=== PATIENT | female | born 1965 | race Caucasian/White ===

== ENCOUNTER 2018-11-23 15:49 | Outpatient (REF) | payer BC, SELFPAY ==
--- NOTE | 2018-11-23 15:30 | PAPFT_PTH ---
PATIENT: Eliz Vaughan LOC: [facility]I U#:[id number] AGE/SX: 53/F ROOM: RE11/23/[address]: CHING Chicas : 1965 BED: DIS: 11/23/2018 SPEC #: [id number] RECD: 11/23/18 18:11 STATUS: TIA RERyan #: [id number] JONNY: 11/23/18 15:[address]: Sofia Salvador [facility] Cytology RECD BY: Janice Childress ENTERED: 11/23/18 18:12 SP TYPE: PAPFT OTHR DR: Trevor Gold MD Tissues: 1 - CX/ENDOCX FOR PAP SMEARS Procedures: PAP THIN PREP/UVM Screening HPV DNA PROBE Comments: [id number]
== END 2018-11-23 16:09 ==
LOC: LBN 15:49
PROVIDERS: PCP Family Medicine; Visit Provider Nurse Practitioner Family
DX: Z12.4 Encounter for screening for malignant neoplasm of cervix (principal); Z11.51 Encounter for screening for human papillomavirus (HPV)
CPT/HCPCS: 88142; 87624

== ENCOUNTER 2019-01-08 00:54 | Outpatient (CLI) | payer BC, SELFPAY ==
--- NOTE | 2019-01-08 15:00 | DI.MAMMO_ITS ---
SYMPTOM/DIAGNOSIS: SCREENING, Z12.31, FAMILY H/O BREAST CA MAMMOGRAMS: Mammograms were interpreted according to the usual protocol including computer analysis with CAD system, tomosynthesis and C view imaging. The breasts are heterogeneously dense. No dominant mass or clumped microcalcification is identified in either breast. Current examination is compared with previous examinations including 12/2017 and there has been no gross interval change in appearance in comparison with the previous studies. CONCLUSION: No specific evidence of malignancy at this time. Routine screening examinations are suggested at yearly intervals due to the family history of breast carcinoma. Category 1. Breast density, category C. MQSA ASSESSMENT OF FINDINGS: Negative. Category 1. Patient will receive a letter notifying them of these results. Bi-RADS category C. The breasts are heterogeneously dense, which may obscure small masses.
== END 2019-01-08 01:14 ==
PROVIDERS: PCP Family Medicine; Visit Provider Nurse Practitioner Family
DX: Z12.31 Encounter for screening mammogram for malignant neoplasm of breast (principal); Z80.3 Family history of malignant neoplasm of breast
CPT/HCPCS: 77063; 77067

== ENCOUNTER 2020-02-24 00:39 | Outpatient (CLI) | payer BC, SELFPAY ==
--- NOTE | 2020-02-24 06:15 | DI.MAMMO_ITS ---
EXAM: MG MAMMO SCREENING CLINICAL HISTORY: screening,Z12.39 TECHNIQUE: Mammograms were interpreted according to the usual protocol including computer analysis w [employer] CAD system, tomosynthesis and C-view imaging. COMPARISON: FINDINGS: Breasts are heterogeneously dense. There are nonspecific scattered microcalcifications of both breas ts. No suspicious clumped microcalcification is seen. Examination is compared with prior studies in clDecember 2018 and there has been no gross interval change appearance comparison previous films. IMPRESSION: No specific evidence of malignancy at this time. Routine screening examinations are suggested at yea rly intervals due to the family history of breast carcinoma. Category: BI-RADS Cat 1 - Negative Breast Density - Category C - Heterogeneously dense:
== END 2020-02-24 00:59 ==
PROVIDERS: PCP Family Medicine; Visit Provider Nurse Practitioner Family
DX: Z12.31 Encounter for screening mammogram for malignant neoplasm of breast (principal); Z80.3 Family history of malignant neoplasm of breast
CPT/HCPCS: 77063; 77067

== ENCOUNTER 2021-01-04 16:16 | Outpatient (REF) | payer BC, SELFPAY ==
--- NOTE | 2021-01-04 15:30 | PAPFT_PTH ---
PATIENT: Eliz Vaughan LOC: N U#:[id number] AGE/SX: 56/F ROOM: RE01/04/[address]: CHING Chicas : 1965 BED: DIS: 01/04/2021 SPEC #: [id number] RECD: 01/04/21 17:39 STATUS: TIA REQ #: [id number] JONNY: 01/04/21 15:[address]: Sofia Salvador DEPT: [facility] Cytology RECD BY: Janice Childress ENTERED: 01/04/21 17:39 SP TYPE: PAPFT OTHR DR: Trevor Gold MD Tissues: 1 - CX/ENDOCX FOR PAP SMEARS Procedures: PAP THIN PREP/UVM Screening HPV DNA PROBE Comments: [id number]
== END 2021-01-04 16:17 | disposition home or self-care (01) ==
LOC: LBN 16:16
PROVIDERS: PCP Family Medicine; Visit Provider Nurse Practitioner Family
DX: Z12.4 Encounter for screening for malignant neoplasm of cervix (principal); Z11.51 Encounter for screening for human papillomavirus (HPV)
CPT/HCPCS: 88142; 87624

== ENCOUNTER 2021-03-02 03:15 | Outpatient (CLI) | payer BC, SELFPAY ==
[2021-03-02 09:32] LABS: Anion Gap 7.6 mmol/L (3-11); BUN 18 mg/dL (7-18); CO2 28.4 mmol/L (21.0-32.0); CREATININE 0.8 mg/dL (0.55-1.02); Calcium 9.2 mg/dL (8.5-10.1); Calculated LDL 125 mg/dL (<100); Chloride 106 mmol/L (98-107); Cholesterol 202 mg/dL (<200); Glucose 93 mg/dL (74-106); HDL Cholesterol 69 mg/dL (40-60); Potassium 4.5 mmol/L (3.5-5.1); Sodium 142 mmol/L (136-145); Triglyceride 44 mg/dL (<150)
[2021-03-05 14:12] LABS: Dog Dander IgE <0.35 kU/L
== END 2021-03-02 03:16 | disposition home or self-care (01) ==
LOC: LBO 03:15
PROVIDERS: Dermatology; PCP Family Medicine; Visit Provider Family Medicine
DX: E87.1 Hypo-osmolality and hyponatremia (principal); E78.5 Hyperlipidemia, unspecified; H01.133 Eczematous dermatitis of right eye, unspecified eyelid; H01.136 Eczematous dermatitis of left eye, unspecified eyelid
CPT/HCPCS: 36415; 80048; 80061; 86003

== ENCOUNTER 2021-03-13 01:26 | Outpatient (CLI) | payer BC, SELFPAY ==
--- NOTE | 2021-03-13 09:15 | DI.MAMMO_ITS ---
Exam(s) MAMMO SCREENING EXAM: MAMMO SCREENING CLINICAL HISTORY: screening,Z12.39 TECHNIQUE: Bilateral full field digital CC and MLO mammographic images were obtained with 3D tomosyn thesis and utilizing computer aided detection (CAD). COMPARISON: Available for comparison. FINDINGS: Masses/Architectural Distortion: None seen. Microcalcifications: No suspicious pleomorphic-type are seen. Skin Thickening/Nipple Retraction: None. IMPRESSION: 1. No significant interval change with no specific features of malignancy noted. 2. Unless there is more urgent need, screening mammography is recommended, as per [employer] guidelines. BI-RADS Category 1 - Negative Breast Density - Category C - Heterogeneously dense Breast density category C or D implies that the patient has dense breast tissue. Dense breast tissue is very common and is not abnormal but dense breast tissue can make it harder to find cancer on a ma mmogram. Also, dense breast tissue may increase their breast cancer risk. This information about the result of the mammogram report was provided to the patient to raise their awareness. Use this report when you speak with the patient about their risks for breast cancer, which includes their family hist ory. At that time, you may recommend for more screening tests (Ultrasound or MRI) as they might be us eful based on their risk. A negative radiographic report should not delay biopsy if a dominant or clinically suspicious mass is present. Up to ten percent of cancers are not identified on mammography. A negative report may reinforce clinical impression. Adenosis and dense breasts may obscure an underlying neoplasm. False positive reports average 6 to 10%. Patient will receive a letter notifying them of these results.
== END 2021-03-13 01:46 ==
PROVIDERS: PCP Family Medicine; Visit Provider Nurse Practitioner Family
DX: Z12.31 Encounter for screening mammogram for malignant neoplasm of breast (principal)
CPT/HCPCS: 77063; 77067

== ENCOUNTER 2021-05-14 02:00 | Outpatient (CLI) | payer BC, SELFPAY ==
[2021-05-14 12:26] LABS: Source Nasal/Nares
[2021-05-14 15:07] LABS: COVID-19 PCR Negative (Negative)
== END 2021-05-14 02:01 | disposition home or self-care (01) ==
LOC: LBO 02:01
PROVIDERS: PCP Family Medicine; Visit Provider Surgery
DX: Z20.822 Contact with and (suspected) exposure to COVID-19 (principal); Z01.818 Encounter for other preprocedural examination
CPT/HCPCS: 87635

== ENCOUNTER 2021-05-15 06:31 | Day surgery (SDC) | payer BC, SELFPAY ==
--- NOTE | 2021-05-14 10:17 | W.PM.HP.N ---
Date of service: 05/15/21 Time of Service: 09:00 Assessment and Plan Assessment and plan (1) Pseudocholinesterase deficiency: Status: Acute (2) Varicose veins of bilateral lower extremities with pain: Status: Acute (3) Varicose veins of both lower extremities with complications: Status: Acute (4) Varicose veins of both legs with edema: Status: Acute Assessment and plan: excision of collateral veins- risks: Bleeding, infection, pneumonia, blood clots, scarring, hyperpigmentation, and recurrence. And complications with anesthesia. I reviewed with the patient today what she could expect during surgery recovery time and risks. We stressed the importance of elevation, compression, and ice. Patient will follow up in 2 weeks. She is stable for the procedure today. History of Present Illness Narrative: -No changes in meds or health status. all questions answered and stable for procedure. veins are marked. The veins being treated the right extremity include: -Anterior accessory of the great saphenous vein- anterior/medially upper thigh, RL extremity x1 w/ stab phlebectomy -Anterior accessory greater saphenous vein- posterior/medial superior portion of calf- RLE x1 w/ stab phlebectomy - x2 spider veins RLE (upper anterior thigh ) w/schlerotherapy x2 spider veins LLE- (anterior/medial lower thigh) w/ sclerotherapy (1) Varicose veins of bilateral lower extremities with pain: (2) Varicose veins of both lower extremities with complications: (3) Varicose veins of both legs with edema: -stabe phlebectomy of RLE and b/l sclerotherapy . -she is a good candidate for anthesia. She did not have problems she had no problems with anesthesia in the past. She has had previous GS these are small side branches that have reoccurred. We did discuss what she could expect during surgery, post procedurally and recovery time. Is approximately 2 weeks. Where compression stockings in the postoperative.. I would like for her to get thigh-high compression stockings possible. She needs to continue to wear compression stockings on a daily basis. She has extensive family history of poor veins. She is on her feet and does need to wear compression stockings stockings lifelong. She is at high risk for recurrence of varicose veins. Risks of surgery include but not limited to: Anesthesia, bleeding, infection, pneumonia, blood clots, chronic pain or chronic numbness and scarring. As well as recurrence of the veins. Risks of scleral include recurrence, ulceration, infections, and skin staining hemosiderin deposition. She has had previous GSV ablation. She does not need to have repeat ultrasound at this point. HPI Pt had b/l varicose vein exicision in 2001/b/l GSV VNUS in 2004& b/l GSV VNUS 2007 She c/o pain and burning in the veins. 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 She does use support hose. There is a strong family hx of V.V. Her mother had bleeding veins. She has never had ulcers. She occ have LE edema. None is present today. She does not get CP or SOB w/ walking around the block. She is a non smoker. She has not had problems w/ anethesia in the past. She say vascular again in 2010. She had venous comtency study done which did reveal: RIGHT C. Femoral V. Reflux.+ Femoral V. Competent: + Pop. V. Competent: + Post Tib V. Reflux: + Short saphenous V. competent: + LEFT C. Femoral V. Reflux:yes Femoral V. Competence:+ Pop. V. Competent:+ Post. Tib. Reflux:+ Short saphenous V. Competent:+ Plan: At this point, stab phlecetomy would be her be the option for her recurrent varicosities. With the caveat that are highly likely to reoccur. Also stab incision around the ankle may be painful in the recovery period. Varicose Veins Pt is here regarding painful varicous veins. medial thigh: right, knee: right, calf: right and ankle: right aching, burning and other 4 elevating extremities Reports firmness, bruising, fatigue, heaviness, pruritus, limb pain, edema and leg edema History of lower extremity trauma: No Superficial thrombophlebitis: Yes Family history of varicose veins: yes Patient has previously received the following treatment(s) for lower extremity varicose veins: Reports none Does patient have a history of : yes Does patient intend to have future pregnancies: no Has patient had lower extremity venous scan with relux testing: Yes Support hose use: Yes Problems walking or doing physical activity: No How does it affect you: daily Do you walk much: Yes Do you stand much: Yes Medication compliance: good Large amounts of Vitamin K: No PFSH Medical History Acne Depressive disorder (09/30/11) IUD surveillance (11/07/14) Carney neuroma Surgical History section Colonoscopy - MAC (01/12/18) History of vein stripping Family History Mother Depression Heart disease Father Essential hypertension Grandmother Breast cancer maternal Maternal Aunt Breast cancer maternal Maternal Aunt Breast cancer maternal Social History Smoking/Tobacco Use Status: Never Smoking risk assessment performed?: Yes Alcohol Intake: current Alcohol Intake frequency: a few times a month Drug use: Never Substance use type: does not use Do you feel safe at home: Yes Do you feel safe in your relationship?: Yes Female Reproductive History Menstrual control method: progestin IUCD History History 2 Para 1 Hx # Term Pregnancies Multiple births Hx # Pregnancies Ectopic pregnancies AB induced Hx Number of Living Children AB spontaneous Meds Allergies and Home Medications Allergies Allergy/AdvReac Type Severity Reaction Status Date / Time pseudocholinesterase AdvReac Severe Cardiac Uncoded 05/15/21 07:38 Dysrythmia Home Medications Medication Instructions Recorded Confirmed Type multivitamin [Daily Multi-Vitamin] 1 tab PO DAILY 03/23/13 05/15/21 History spironolactone 50 mg PO DAILY #180 tab-cap 03/23/13 05/15/21 History citalopram 20 mg tablet 20 mg PO DAILY #90 tab-cap 01/04/21 05/15/21 Rx cetirizine 10 mg tablet 10 mg PO DAILY PRN 03/28/21 History Exam Resp Effort & Inspection: normal respiratory effort Auscultation: clear to auscultation bilaterally Cardio Rate: regular rate Rhythm: regular rhythm GI Palpation: soft Auscultation: normal bowel sounds Extrem General: no clubbing, cyanosis or edema Other: varicosity's on right upper and lower medial thigs- marked in preop. Few scattered spiders b/l.
[2021-05-15 06:30] VITALS: BP 109/71; PULSE 68; RESP 6; TEMP 36.6; O2SAT 97
[2021-05-15] MEDS: Lactated Ringers 1,000 ML 80 ML IV (07:04)
--- NOTE | 2021-05-15 07:20 | W.ANESPRE ---
General Info Date of Service Date Performed: 05/15/21 Height: 5 ft 6 in Weight: 79.5 kg Body Mass Index (BMI): 28.3 Surgical Procedure: Operation Date: 05/15/21 07:55 Proposed Procedures Side Surgeon p vein stripping upper and lower leg rt and injections Right Cris Lindsay, Actual Procedures Side Surgeon p vein stripping upper and lower leg rt and injections Right Cris Lindsay, DO Meds Allergies and Home Medications Allergies Allergy/AdvReac Type Severity Reaction Status Date / Time pseudocholinesterase AdvReac Severe Cardiac Uncoded 05/15/21 07:38 Dysrythmia Home Medication Medication Instructions Recorded multivitamin [Daily Multi-Vitamin] 1 tab PO DAILY 03/23/13 spironolactone 50 mg PO DAILY #180 tab-cap 03/23/13 citalopram 20 mg tablet 20 mg PO DAILY #90 tab-cap 01/04/21 cetirizine 10 mg tablet 10 mg PO DAILY PRN 03/28/21 Current Visit Medications: Current Medications Generic Name Dose Route Start Last Admin Trade Name Deejayq PRN Reason Stop Dose Admin Ringer's Solution 1,000 mls @ 80 mls/hr 05/15/21 06:00 05/15/21 07:04 IV 06/13/21 23:59 80 mls/hr INFUSION ARTURO Administration IV Miscellaneous Supplies 1 each 05/15/21 06:00 Iv Access IV 06/13/21 23:59 DIRECTED ARTURO Sodium Chloride 0 ml 05/15/21 06:00 Normal Saline Flush 10 Ml Syr IV 06/13/21 23:59 PRN PRN Sodium Chloride 0 ml 05/15/21 06:00 Normal Saline 10 Ml Vial IJ 06/13/21 23:59 DIRECTED PRN Sterile Water 0 ml 05/15/21 06:00 Water,Injection,Sterile 10 Ml Vial IJ 06/13/21 23:59 DIRECTED PRN PFSH Active Problems Active Problems: Problem Status Onset Code Varicose veins of bilateral lower extremities with pain I83.813 Varicose veins of both lower extremities with complications I83.893 Varicose veins of both legs with edema I83.893 Acne L70.9 Depressive disorder 09/30/11 F32.9 IUD surveillance 11/07/14 Z30.431 Medical History Medical History (Updated 05/15/21 @ 06:43 by Marisabel Wells) Acne Depressive disorder (09/30/11) IUD surveillance (11/07/14) Carney neuroma Surgical History Surgical History (Updated 05/15/21 @ 06:42 by Marisabel Wells) section Colonoscopy - MAC (01/12/18) History of vein stripping Tobacco Smoking/Tobacco Use Status: Never Alcohol Alcohol Intake: current Alcohol intake frequency: a few times a month Substance Use Substance use: Never Substance use type: does not use Prental History History 2 Para 1 Hx # Term Pregnancies Multiple births Hx # Pregnancies Ectopic pregnancies AB induced Hx Number of Living Children AB spontaneous Vital Signs and Lab Results Vital Signs Most Recent Vital Signs in EMR: Most Recent Vital Signs Temp Pulse Resp BP Pulse Ox 36.6 C 68 6 L 109/71 97 05/15/21 06:30 05/15/21 06:30 05/15/21 06:30 05/15/21 06:30 05/15/21 06:30 Point of Care Results Point of Care Results: POC- Test(urine) Negative 05/15/21 07:03 Lab Results Blood Type / Crossmatch: No Data to Display Complete Blood Count: No Data to Display Complete Metabolic Panel: No Data to Display Liver Function Panel: No Data to Display Coagulation Panel: No Data to Display Cardiac Panel: No Data to Display Arterial Blood Gas: No Data to Display Venous Blood Gas: No Data to Display Pancreas Panel: No Data to Display Thyroid Panel: No Data to Display Infectious Disease: Coronavirus (COVID-19)(PCR) Negative (Negative) 05/14/21 08:27 05/14/21 Coronavirus 2019 Source Nasal/Nares 05/14/21 08:27 05/14/21 Blood Cultures: No Data to Display Toxicology Panel: No Data to Display Panel: No Data to Display Anesthesia Assessment and Plan Anesthesia History Personal History: Pseudocholinesterase Deficiency Family History: Pseudocholinesterase Deficiency (Possibly father) Exercise Tolerance Exercise Tolerance: Metabolic Equivalents>4 Pertinent Negatives Pertinent Negatives: No Symptoms of GERD, No Major Cardiovascular Symptoms or Complaints, No Major Pulmonary Symptoms or Complaints and No History of CVA/TIA Cardiac & Pulmonary Exam Cardiac Exam: Normal S1/S2 Heart Sounds Pulmonary Exam: Clear Bilateral Breath Sounds Airway Exam Known Difficult Airway: No Mallampati Class: 2 Mouth Opening: Normal (> 3cm) Thyromental Distance: Greater than 3 cm Neck Range of Motion: Full ROM Neck Circumference: Normal Teeth Condition: Normal Dentition ASA Classification ASA Score: ASA 2 Emergency Case?: No NPO Status NPO Status: NPO Clears >2 hours, Solids >8 hours Status Status: Negative HCG Anesthesia Plan Resuscitation Status: Full Code Anesthesia Technique: General Anesthesia Airway Planned: Natural Airway Monitors Used: Standard Monitors
[2021-05-15 07:22] VITALS: BMI 28.3
[2021-05-15] MEDS: Lidocaine 1% Multi-Dose 50 ML VIAL (09:30)
[2021-05-15 10:15] VITALS: BP 103/63; PULSE 59; RESP 18; TEMP 35.7; O2SAT 94
--- NOTE | 2021-05-15 10:19 | W.PM.DSUDISC ---
Discharge Plan Disposition Patient Disposition: HOME Condition: Good Discharge Details Reason For Visit: phlebectomy Attending Provider: Cris Lindsay Primary Care Provider: Trevor Gold Home Meds and New Rx's Prescriptions: No Action citalopram [Celexa] 20 mg tablet 20 mg PO DAILY Qty: 90 RF: 3 cetirizine [Zyrtec] 10 mg tablet 10 mg PO DAILY PRNRF: 0 spironolactone 50 MG tablet 50 mg PO DAILY Qty: 180 RF: 4 multivitamin [Daily Multi-Vitamin] 1 EACH tablet 1 tab PO DAILY RF: 0 Discharge Instructions Additional Instructions: Discharge Instructions for Varicose Vein Surgery You had surgery to remove your varicose veins. Here?s what you can do after surgery to help with your recovery. Home care After you go home: ? You may have some bruising in the area where the vein was removed. This is normal. ? For the first 2 weeks after surgery, don't stand for long periods. Don't lift heavy items. ? Ask someone to help you do errands and chores for a few days after surgery. ? Keep your legs raised when you?re sitting or lying down. ? Start a regular walking program the 48 after surgery. Just walk for a few minutes at first. Then work up to 5 minutes at a time. Gradually increase to 15 to 20 minutes at a time, 2 to 3 times a day. ? Remove bandages after 48hrs. Than wear support hose during the day for the next two weeks. It is OK to remove them to sleep and shower. After 48hrs, you can shower in 48hrs. No bath, hot tubs, swimming for two weeks. When you are sitting, move your feet back and forth and in circles. This is to keep your blood moving. ? You can return to driving in 72hrs. You can return to work in 1 weeks time. Pain Management Protocol -Tylenol 1000mg every 8 hours, use continuously for the first 5 days. Tylenol is an anti-inflammatory. It is important to take this medication to keep the swelling down. Swelling is what causes pain. -Use ice. This also helps to keep swelling down -celebrex 100mg twice a day, use continuously for the first 5 days. Do not take aspirin while taking this medication. -Metamucil twice a day for bowels/constipation. Do NOT strain to move your bowels! This is like lifting 50#'s. -Ultram take as needed for pain >7. This medication will make you constipated. Call your healthcare provider right away if you have any of these: ? Severe bleeding, redness, or drainage at the incision sites ? Development of an ulcer (sore) at the incision sites ? Numbness or tingling in legs or feet ? Increasing leg pain or swelling ? Fever, shaking, or chills ? Chest pain or shortness of breath Follow- up with [facility] on May 24 at 1:00pm [phone] Activity:: see above Remove Dressings/Wound Care:: 48 hours Shower/Bathe:: 48 hours Diet:: Normal Diet Discharge Orders Discharge Orders: Discharge Order (Routine); Ordered 05/15/21 Ordered By: Cris Lindsay DS: Diagnosis Discharge Diagnosis (1) Pseudocholinesterase deficiency: Status: Acute (2) Varicose veins of bilateral lower extremities with pain: Status: Acute (3) Varicose veins of both lower extremities with complications: Status: Acute (4) Varicose veins of both legs with edema: Status: Acute
--- NOTE | 2021-05-15 10:46 | W.ANESPOSTOP ---
Postoperative Evaluation Date, Time and Location Date Performed: 05/15/21 Time Performed: 10:46 Patient Location: Day Surgery Unit Vital Signs Most Recent Imported Vital Signs: Most Recent Vital Signs Temp Pulse Resp BP Pulse Ox 35.7 C L 59 L 18 103/63 94 05/15/21 10:15 05/15/21 10:15 05/15/21 10:15 05/15/21 10:15 05/15/21 10:15 Pain Score Most Recent Pain Score: Most Recent Pain Score Pain Level 4 05/15/21 10:15 Assessment Mental Status: Awake (Alert & Oriented to Patient Baseline) Airway and Respiratory Function: Patent airway with normal (patient baseline) respiratory exam Cardiovascular Function: Hemodynamically Stable Hydration Status: Adequately Hydrated Nausea & Vomiting: No Nausea or Vomiting Pain: Pt. Denies Any Pain Peripheral Nerve Block: Patient did not receive a nerve block
[2021-05-15 10:55] VITALS: BP 105/69; PULSE 56; RESP 18; TEMP 36; O2SAT 99
[2021-05-15] MEDS: Ketorolac 15 MG/ML VIAL IVP (10:56)
--- NOTE | 2021-05-15 12:49 | ROE_ITS ---
Date of service: 05/15/21 Time of Service: 12:49 Operative Note Operative Note DATE OF PROCEDURE: 05/15/21 PRE-OP DIAGNOSIS: painful/symptomatic varicose veins POST-OP DIAGNOSIS: same PROCEDURE: stab phlebectomy Right LE- upper& lower medial RLE SURGEON: Cris Lindsay [employer] OPERATOR: Narcisa Lozada ANESTHESIA TYPE: Local By Surgeon and General:No Airway Refer to Anesthesia Record ESTIMATED BLOOD LOSS: 5 PATHOLOGY: none sent COMPLICATIONS: None Patient was transported to: same day Procedure Description: Eliz is here today for stab phlebectomy for recurrent varicose veins. She has had bilateral VN US closure of her main saphenous vein. She has developed some branches that are symptomatic and is here today for excision. Her legs are marked in preop. Informed consent is obtained explaining risks and benefits of the procedure including but not limited to bleeding, infection, scarring, recurrence, and complications from the anesthesia. Patient is brought to the operative suite and placed in the supine position. She is prepped and draped in the usual sterile fashion using a Betadine scrub solution. Timeout is performed. Anesthesia is ministered per the department of anesthesia. 10cc of 1% lidocaine is used for local anesthetization. The stab phlebectomy is done on the right leg upper and lower medial thigh there are 5 stabs in the upper leg and 5 stabs on the lower leg the veins are isolated using vein hooks and then excised pressure is held minimal bleeding is noted the stab sites are closed with skin glue. Compression dressings are applied. Patient tolerated procedure well without complication and transferred to recovery room in stable condition Voice activated software was used to create this document and it may contain errors.
== END 2021-05-15 06:32 | disposition home or self-care (01) ==
PROVIDERS: PCP Family Medicine; Visit Provider Surgery
PROC: (CPT 37765; principal; 2021-05-15 07:45)
DX: I83.813 Varicose veins of bilateral lower extremities with pain (principal); I83.893 Varicose veins of bilateral lower extremities with other complications
CPT/HCPCS: 37765; 36468; 81025; J1885; J2001; J2370

== ENCOUNTER 2021-11-16 11:48 | Outpatient (CLI) | payer BC, SELFPAY ==
[2021-11-17 18:34] LABS: Tissue Transglutaminase Ab IgA <1.2 U/mL; Tissue Transglutaminase Ab IgG 2.5 U/mL
== END 2021-11-16 11:49 | disposition home or self-care (01) ==
LOC: LBO 12:15
PROVIDERS: PCP Family Medicine; Visit Provider Family Medicine
DX: K52.89 Other specified noninfective gastroenteritis and colitis (principal); K59.09 Other constipation
CPT/HCPCS: 36415; 83516

== ENCOUNTER → 2022-03-19 00:46 | Outpatient (CLI) | payer BC, SELFPAY ==
--- NOTE | 2022-03-19 15:00 | DI.MAMMO_ITS ---
Exam(s) MAMMO SCREENING EXAM: MAMMO SCREENING CLINICAL HISTORY: screening TECHNIQUE: Mammograms were interpreted according to the usual protocol including computer analysis w [employer] CAD system, tomosynthesis and C-view imaging. COMPARISON: 2011 through 2020 FINDINGS: The breasts are composed of scattered fibroglandular densities, Breast Density category B. No suspicious masses or suspicious microcalcifications are seen. No skin thickening or abnormal axillary lymph nodes are seen. There has been no significant change from prior exams. IMPRESSION: BI-RADS Category 1, Negative mammogram Yearly screening mammography is recommended. Breast Density - Category B, scattered fibroglandular densities. A negative radiographic report should not delay biopsy if a dominant or clinically suspicious mass is present. Up to ten percent of cancers are not identified on mammography. A negative report may reinforce clinical impression. Adenosis and dense breasts may obscure an underlying neoplasm. False positive reports average 6 to 10%. Patient will receive a letter notifying them of these results.
== END ==
PROVIDERS: PCP Family Medicine; Visit Provider Nurse Practitioner Family
DX: Z12.31 Encounter for screening mammogram for malignant neoplasm of breast (principal)
CPT/HCPCS: 77063; 77067

== ENCOUNTER → 2022-06-21 15:19 | Outpatient (CLI) | payer BC, SELFPAY ==
--- NOTE | 2022-06-21 10:45 | DI.RAD_ITS ---
Exam(s) XR KNEE LT 3V AP,LAT,OLLIE EXAM: XR KNEE LT 3V AP,LAT,OLLIE CLINICAL HISTORY: twisting injury 6 months ago; worsening pain,m25.562. TECHNIQUE: 2D digital imaging was performed of the left knee. Three images were obtained. AP, late ral and PA tunnel views were obtained. COMPARISON: No exams were available for comparison FINDINGS: BONES: No acute fracture is present. No bony destructive lesion is seen. JOINTS: The knee is normally aligned. There is a small suprapatellar joint effusion. SOFT TISSUE: Normal. IMPRESSION: No acute fracture or dislocation. If there is concern for internal derangement an MRI should be cons idered. DATA REPOSITORY: RADIATION DOSE DELIVERED:
--- NOTE | 2022-06-21 11:30 | DI.RAD_ITS ---
Exam(s) XR LUMBAR SPINE COMPLETE EXAM: XR LUMBAR SPINE COMPLETE CLINICAL HISTORY: low back pain, M54.50. TECHNIQUE: 2D digital imaging was performed of the lumbar spine. Five images were obtained. AP, la teral, right oblique, left oblique and L5-S1 spot views were obtained. COMPARISON: No exams were available for comparison FINDINGS: BONES: No fracture or destructive lesion. Vertebral bodies are unremarkable. Mild degenerative change s of the facets at L5-S1 are present. DISKS: Intervertebral disc spaces are maintained. ALIGNMENT: Lumbar spinal alignment is within normal limits. No spondylolysis or spondylolisthesis. SOFT TISSUE: Normal. IMPRESSION: Mild degenerative changes in the lower lumbar spine. DATA REPOSITORY: RADIATION DOSE DELIVERED:
== END ==
PROVIDERS: PCP Family Medicine; Visit Provider Family Medicine
DX: M25.562 Pain in left knee (principal); M47.816 Spondylosis without myelopathy or radiculopathy, lumbar region
CPT/HCPCS: 73562; 72110

== ENCOUNTER 2022-07-15 02:05 | Outpatient (CLI) | payer BC, SELFPAY ==
--- NOTE | 2022-07-15 08:00 | DI.MRI_ITS ---
Exam(s) MR LOWER JOINT LT WO EXAM: MR LOWER JOINT LT WO CLINICAL HISTORY: L KNEE PAIN,MCL SPRAIN,ACUTE LAT MENISCAL TEAR,S83.412A,S83.282A,M23.92. TECHNIQUE: Multiplanar multisequence MRI was performed. COMPARISON: CR XR KNEE LT 3V AP,LAT,OLLIE from 06/21/2022 FINDINGS: BONES: There is no fracture or contusion pattern. Suspect beneath level of the tibial spines. JOINTS: A moderate-sized joint effusion is present. Articular cartilage: Patellofemoral joint: Small defect patellar apex Medial femoral tibial joint: Articular cartilage is unremarkable. Lateral femoral tibial joint: Articular cartilage is unremarkable. TENDONS: Extensor mechanism: Unremarkable. Medial retinaculum: Unremarkable. Lateral retinaculum: Unremarkable. Popliteus: Unremarkable. MUSCLES: Unremarkable. MENISCI: The medial meniscus is unremarkable. There is a tear of the anterior horn of the medial men iscus with superior portion flipped laterally, adjacent to the inferior portion of the anterior horn. SOFT TISSUES: Unremarkable. LIGAMENTS: Anterior Cruciate: Unremarkable. Posterior Cruciate: Unremarkable. Medial Collateral:Surrounding fluid. No visible focal tear. Lateral Collateral: Unremarkable. OTHER: IMPRESSION: Tear of the anterior horn of the lateral meniscus with laterally flipped fragment. Medial collateral ligament sprain. DATA REPOSITORY:
== END 2022-07-15 02:25 ==
LOC: DI 02:07
PROVIDERS: PCP Family Medicine; Visit Provider Student in an Organized Health Care Education/Training Program
DX: M25.562 Pain in left knee; M23.8X2 Other internal derangements of left knee; S83.282A Other tear of lateral meniscus, current injury, left knee, initial encounter; S83.412A Sprain of medial collateral ligament of left knee, initial encounter
CPT/HCPCS: 73721

== ENCOUNTER 2022-08-01 08:56 | Day surgery (SDC) | payer BC, SELFPAY ==
[2022-08-01 09:05] VITALS: BP 114/78; PULSE 68; RESP 18; TEMP 37; O2SAT 98
[2022-08-01] MEDS: Lactated Ringers 1,000 ML 30 ML IV (09:31)
--- NOTE | 2022-08-01 09:45 | W.ANESPRE ---
General Info Date of Service Date Performed: 08/01/22 Height: 5 ft 6 in Weight: 82.554 kg Body Mass Index (BMI): 29.3 Surgical Procedure: Operation Date: 08/01/22 11:40 Proposed Procedure Side Surgeon p Knee Arthroscopy W/any Menisical,Chondral & Synovial Surgery/Partial Lateral Meniscectomy Left Branden Maldonado MD Meds Allergies and Home Medications Allergies Allergy/AdvReac Type Severity Reaction Status Date / Time pseudocholinesterase AdvReac Severe Cardiac Uncoded 07/31/22 13:15 Dysrythmia Home Medication Medication Instructions Recorded multivitamin (Daily Multi-Vitamin 1 tab PO DAILY 03/23/13 tablet) citalopram 20 mg tablet (Celexa) 20 mg PO DAILY #90 tab-caps 01/07/22 Current Visit Medications: Current Medications Generic Name Dose Route Start Last Admin Trade Name Freq PRN Reason Stop Dose Admin Ringer's Solution 1,000 mls @ 30 mls/hr 08/01/22 06:00 08/01/22 09:31 IV 08/30/22 23:59 30 mls/hr INFUSION ARTURO Administration Cefazolin Sodium/Dextrose 2 gm in 50 mls @ 100 mls/hr 08/01/22 06:00 Ancef Duplex IVPB 08/01/22 16:00 PREOP ARTURO IV Miscellaneous Supplies 1 each 08/01/22 06:00 Iv Access IV 08/30/22 23:59 DIRECTED ARTURO Oxycodone HCl 0 mg 08/01/22 07:12 Oxycodone 5 Mg Tab PO Q3H PRN PRN Pain Sodium Chloride 0 ml 08/01/22 06:00 Normal Saline Flush 10 Ml Syr IV 08/30/22 23:59 PRN PRN Sodium Chloride 0 ml 08/01/22 06:00 Normal Saline 10 Ml Vial IJ 08/30/22 23:59 DIRECTED PRN Sterile Water 0 ml 08/01/22 06:00 Water,Injection,Sterile 10 Ml Vial IJ 08/30/22 23:59 DIRECTED PRN PFSH Active Problems Active Problems: Problem Status Onset Code Acute lateral meniscus tear of left knee ~12/2021 S83.282A Left knee pain M25.562 Low back pain M54.50 Constipation K59.00 Pseudocholinesterase deficiency E88.09 Varicose veins of bilateral lower extremities with pain I83.813 Varicose veins of both lower extremities with complications I83.893 Varicose veins of both legs with edema I83.893 Acne L70.9 Depressive disorder 09/30/11 F32.9 Medical History Medical History Bone cyst of left tibia MCL sprain of left knee Carney neuroma Surgical History Surgical History section Colonoscopy - MAC (01/12/18) History of vein stripping (~05/14/21) Tobacco Smoking/Tobacco Use Status: Never Alcohol Alcohol Intake: current Alcohol intake frequency: a few times a month Substance Use Substance use: Never Substance use type: does not use Prental History History 2 Para 1 Hx # Term Pregnancies Multiple births Hx # Pregnancies Ectopic pregnancies AB induced Hx Number of Living Children AB spontaneous Vital Signs and Lab Results Vital Signs Most Recent Vital Signs in EMR: Most Recent Vital Signs Temp Pulse Resp BP Pulse Ox 37 C 68 18 114/78 98 08/01/22 09:05 08/01/22 09:05 08/01/22 09:05 08/01/22 09:05 08/01/22 09:05 Lab Results Blood Type / Crossmatch: No Data to Display Complete Blood Count: No Data to Display Complete Metabolic Panel: No Data to Display Liver Function Panel: No Data to Display Coagulation Panel: No Data to Display Cardiac Panel: No Data to Display Arterial Blood Gas: No Data to Display Venous Blood Gas: No Data to Display Pancreas Panel: No Data to Display Thyroid Panel: No Data to Display Infectious Disease: No Data to Display Blood Cultures: No Data to Display Toxicology Panel: No Data to Display Anesthesia Assessment and Plan Anesthesia History Personal History: PONV and Pseudocholinesterase Deficiency Family History: Pseudocholinesterase Deficiency Exercise Tolerance Exercise Tolerance: Metabolic Equivalents>4 Pertinent Negatives Pertinent Negatives: No Symptoms of GERD, No Major Cardiovascular Symptoms or Complaints, No Major Pulmonary Symptoms or Complaints and No History of CVA/TIA Cardiac & Pulmonary Exam Cardiac Exam: Normal S1/S2 Heart Sounds Pulmonary Exam: Clear Bilateral Breath Sounds Implantable Cardiac Device Does patient have a Pacemaker or an ICD?: No Airway Exam Known Difficult Airway: No Mallampati Class: 2 Mouth Opening: Normal (> 3cm) Thyromental Distance: Greater than 3 cm Neck Range of Motion: Full ROM Neck Circumference: Normal Teeth Condition: Normal Dentition ASA Classification ASA Score: ASA 2 Emergency Case?: No NPO Status NPO Status: NPO Clears >2 hours, Solids >8 hours Anesthesia Plan Resuscitation Status: Full Code Anesthesia Technique: Spinal Anesthesia Airway Planned: Natural Airway Monitors Used: Standard Monitors
[2022-08-01 10:31] VITALS: BMI 29.3
[2022-08-01] MEDS: ceFAZolin 2 GM/50 ML BAG IVPB (10:50)
--- NOTE | 2022-08-01 11:00 | W.PM.OP ---
Operative Note Operative Note DATE OF PROCEDURE: 08/01/22 PRE-OP DIAGNOSIS: Left knee 1. Lateral meniscus tear POST-OP DIAGNOSIS: other Left knee 1. Lateral meniscus tear 2. Synovitis 3. Chondromalacia PROCEDURE: Left knee 1. Partial lateral meniscectomy, CPT #77549 2. Greater than 2 compartment synovectomy, CPT #23168: Suprapatellar, patellofemoral, intercondylar, and anterolateral 3. Chondroplasty, CPT #34367: Trochlea SURGEON: Branden Maldonado [employer] ARCHITECT: None None ANESTHESIA TYPE: Local By Surgeon and General LMA/ETT Refer to Anesthesia Record ESTIMATED BLOOD LOSS: 5 PATHOLOGY: none sent TOURNIQUET TIME: 0 Patient was transported to: PACU Patient's condition: stable Indications: Please see complete medical record for details. Findings: Exam under anesthesia: Full range of motion, mild valgus alignment and increased medial opening in gentle flexion to valgus stress. Stable Adriana. Mechanical crepitation with passive flexion extension. Arthroscopic findings: Suprapatellar adhesions. Moderately sized high?grade trochlear cartilage lesion. Complex lateral meniscus body tear with extension into the anterior horn with possible redundant discoid etiology. Moderate lateral chondromalacia. Preserved medial compartment. ACL PCL with fraying but otherwise intact. Procedure Description: In the operating room, genral anesthesia was induced. The patient was positioned supine on the operating room table. All bony prominences were well-padded. Preoperative antibiotics were administered. The knee was prepped and draped in the usual sterile fashion. The correct patient, procedure, and side of the procedure were all verified prior to incision. Exam under anesthesia was performed. 10 cc of 0.25% bupivacaine containing epinephrine was infiltrated about the planned anteromedial and anterolateral knee arthroscopy portals. The portals were established and a complete diagnostic arthroscopy was performed with relevant findings detailed above. The mechanical shaver was used to remove abundant inflamed synovium from the intercondylar area, anterolateral and patellofemoral compartments, and resect suprapatellar adhesions. Using a combination of hand instruments including meniscal biters and a power shaver and working through the anteromedial and anterolateral portals the lateral meniscus body into the anterior horn was debrided of all torn tissue to a stable margin. There was also a partial tear debrided at the root. Care was taken to preserve as much meniscus tissue was possible while still resecting degenerative and possibly redundant anterior horn tissue. The meniscal remnant was probed and found to have a stable margin, stable root, and no other tears. There is a moderately sized high?grade central trochlear cartilage lesion. Grade 2?3 chondromalacia. Cartilage softening and unstable margins with fibrillations and fissures more centrally. The mechanical shaver was used to smooth this irregular contour to a stable cartilage bed and margin to prevent tear propagation and loose body formation. Cartilage was preserved as best possible. Under direct arthroscopic visualization an 18-gauge needle was passed into the knee from superolateral into the suprapatellar pouch. The knee was copiously irrigated with arthroscopic fluid until there was a clear effluent before being drained of all fluid. The anteromedial and anterolateral portals were closed in 3-0 Monocryl in a buried interrupted fashion. 20 cc of 0.25% bupivacaine with epinephrine containing 4 mg of morphine was infiltrated into the knee through the previously placed needle. Mastisol, Steri-Strips, and 4 x 4 gauze were applied over the incisions followed by sterile soft roll. The knee was then wrapped gently with an BROCK comressive bandage. The patient awoke from anesthesia without complication and was transferred to the recovery room in a stable condition.
[2022-08-01] MEDS: MORPHine 4 MG/ML SYR (11:22)
[2022-08-01] MEDS: Bupivacaine 0.5% Pres-Free W/EPI 30 ML VIAL (11:23)
[2022-08-01] MEDS: EPINEPHrine 30 MG/30 ML VIAL (11:23)
[2022-08-01 11:58] VITALS: BP 92/63; PULSE 64; RESP 16; TEMP 36.1; O2SAT 96
--- NOTE | 2022-08-01 12:11 | PDOC.DSDIS_ITS ---
Discharge Plan Disposition Patient Disposition: HOME Condition: Stable Discharge Details Reason For Visit: Left knee surgery Attending Provider: Branden Maldonado Primary Care Provider: Trevor Gold Home Meds and New Rx's Prescriptions: New aspirin 81 mg tablet,delayed release (DR/EC) 81 mg PO DAILY 14 Days Qty: 14 0RF naproxen 250 mg tablet 250 - 500 mg PO BID PRNQty: 40 0RF Rx Instructions: take with a meal oxycodone 5 mg tablet 5 - 10 mg PO Q4H MDD 30 mg PRN (Reason: moderate to severe pain) Qty: 18 0RF Continued citalopram [Celexa] 20 mg tablet 20 mg PO DAILY Qty: 90 3RF multivitamin [Daily Multi-Vitamin] 1 EACH tablet 1 tab PO DAILY Discharge Instructions Additional Instructions: Surgery: Left knee arthroscopy with partial lateral meniscectomy, trochlear chondroplasty, and suprapatellar lysis of adhesions Activity: Weightbearing as tolerated. Advance range of motion as comfort allows. No knee brace or crutches needed as soon as comfortable. Recommend avoiding sports, pivoting, and squatting for 6-8 weeks. A physical therapy prescription will be sent electronically to start in 2 to 3 weeks. Prescriptions: Aspirin 81 mg take 1 daily to prevent a blood clot for 14 days Naproxen 250 mg take 1-2 every 12 hours with a meal as needed for moderate pain Oxycodone 5 mg take 1-2 every 4-6 hours as needed for severe pain You may use [id number] Tylenol (acetaminophen) as needed for mild pain. These pain medications may be taken all at once or in different combinations as needed. Also, recommend Colace (docusate) as a stool softener as surgery and pain medi cine cause constipation. You may try qdxz-owu-jzigqcy diphenhydramine (Benadryl) 25-50 mg nightly as a sleep aid Dressings: Leave dressing in place for 3 days. May then remove and leave open to air or cover incisions with Band-Aids. May shower after 5 days. Follow-up: 10-[address] Maldonado You may take off the leg compression stockings this evening at home. You may also leave them on a few days longer if you have a history of leg swelling or edema. Let us know right away if you develop any redness, drainage, fevers, chest pain, or trouble breathing. Do not drink alcohol or drive for at least 24 hours after anesthesia. Please call the office during business hours with any questions or concerns. Discharge Orders Discharge Orders: Discharge Order (Routine); Ordered 08/01/22 Ordered By: Branden Maldonado DS: Diagnosis Discharge Diagnosis (1) Acute lateral meniscus tear of left knee: Status: Acute
[2022-08-01 12:30] VITALS: BP 116/65; PULSE 62; RESP 16; TEMP 36; O2SAT 98
[2022-08-01 12:40] VITALS: BP 116/65; PULSE 62; RESP 16; TEMP 36; O2SAT 98
--- NOTE | 2022-08-01 13:00 | W.ANESPOSTOP ---
Postoperative Evaluation Date, Time and Location Date Performed: 08/01/22 Time Performed: 13:00 Patient Location: Day Surgery Unit Vital Signs Most Recent Imported Vital Signs: Most Recent Vital Signs Temp Pulse Resp BP Pulse Ox 36 C L 62 16 116/65 98 08/01/22 12:40 08/01/22 12:40 08/01/22 12:40 08/01/22 12:40 08/01/22 12:40 Pain Score Most Recent Pain Score: Most Recent Pain Score Pain Level 0 08/01/22 12:30 Assessment Mental Status: Awake (Alert & Oriented to Patient Baseline) Airway and Respiratory Function: Patent airway with normal (patient baseline) respiratory exam Cardiovascular Function: Hemodynamically Stable Hydration Status: Adequately Hydrated Nausea & Vomiting: No Nausea or Vomiting Pain: Pt. Denies Any Pain Peripheral Nerve Block: Patient did not receive a nerve block
== END 2022-08-01 13:21 | disposition home or self-care (01) ==
LOC: SUR 08:57
PROVIDERS: PCP Family Medicine; Visit Provider Student in an Organized Health Care Education/Training Program
PROC: (CPT 29870; principal; 2022-08-01 11:30)
DX: S83.282A Other tear of lateral meniscus, current injury, left knee, initial encounter (principal); M94.262 Chondromalacia, left knee; M65.862 Other synovitis and tenosynovitis, left lower leg; X58.XXXA Exposure to other specified factors, initial encounter
CPT/HCPCS: 29876; 29881; J0690; J1885; J2250; J2270; J2405

== ENCOUNTER 2023-01-06 01:48 | Outpatient (CLI) | payer BC, SELFPAY ==
--- NOTE | 2023-01-06 08:00 | DI.MRI_ITS ---
Exam(s) MR LOWER JOINT LT WO EXAM: MR LOWER JOINT LT WO CLINICAL HISTORY: ? acute lat MENISCAL TEAR VS WORSENING CHONDROMALACIA,m94.262,s83.282a. TECHNIQUE: Multiplanar multisequence MRI was performed. COMPARISON: CR XR KNEE LT 3V AP,LAT,OLLIE from 06/21/2022 MR MR LOWER JOINT LT WO from 07/15/2022 FINDINGS: BONES: There is no fracture or contusion pattern. A cystic area is again noted in the region of the t ibial spines JOINTS: A moderate-sized joint effusion is present. Articular cartilage: Patellofemoral joint: Minimal irregularity at apex. Medial femoral tibial joint: Articular cartilage is unremarkable. Minimal periarticular spurring. Lateral femoral tibial joint: Articular cartilage is unremarkable. Mild periarticular spurring. TENDONS: Extensor mechanism: Unremarkable. Medial retinaculum: Unremarkable. Lateral retinaculum: Unremarkable. Popliteus: Unremarkable. MUSCLES: Unremarkable. MENISCI: The medial meniscus is unremarkable. The anterior horn of the lateral meniscus is diminutiv e consistent with postsurgical changes. No acute tear is seen. No meniscal fragments seen. SOFT TISSUES: Unremarkable. LIGAMENTS: Anterior Cruciate: Unremarkable. Posterior Cruciate: Unremarkable. Medial Collateral:Unremarkable. Lateral Collateral: Unremarkable. OTHER: IMPRESSION: Postsurgical changes of the lateral meniscus. Joint effusion. No acute abnormality identified. DATA REPOSITORY:
== END 2023-01-06 02:08 ==
LOC: DI 01:49
PROVIDERS: PCP Family Medicine; Visit Provider Student in an Organized Health Care Education/Training Program
DX: M25.562 Pain in left knee (principal); M25.462 Effusion, left knee; M94.262 Chondromalacia, left knee; Z98.890 Other specified postprocedural states
CPT/HCPCS: 73721

== ENCOUNTER 2023-02-25 15:17 | Outpatient (REF) | payer BC, SELFPAY ==
--- NOTE | 2023-02-25 14:00 | PAPFT_PTH ---
PATIENT: Eliz Vaughan LOC: [facility] U#:[id number] AGE/SX: 58/F ROOM: RE02/25/[address]: Sita Cope NP : [id number] BED: DIS: 02/25/2023 SPEC #: [id number] RECD: 02/25/23 17:47 STATUS: TIA REQ #: [id number] JONNY: 02/25/23 14:[address]: Prisca ARGUELLES,Sita DEPT: [facility] Cytology RECD BY: Janice Childress ENTERED: 02/25/23 17:47 SP TYPE: PAPFT OTHR DR: Trevor Gold MD Tissues: 1 - CX/ENDOCX FOR PAP SMEARS Procedures: PAP THIN PREP/U[facility] Screening HPV DNA PROBE Comments: [id number]
== END 2023-02-25 15:18 | disposition home or self-care (01) ==
LOC: LBN 15:17
PROVIDERS: PCP Family Medicine; Visit Provider Nurse Practitioner Women's Health
DX: Z12.4 Encounter for screening for malignant neoplasm of cervix (principal); R87.610 Atypical squamous cells of undetermined significance on cytologic smear of cervix (ASC-US); Z11.51 Encounter for screening for human papillomavirus (HPV)
CPT/HCPCS: 88142; 87624

== ENCOUNTER 2023-03-05 05:20 | Outpatient (CLI) | payer BC, SELFPAY ==
[2023-03-05 09:53] LABS: TSH (W/Ref FT4) 2.49 uIU/mL (0.36-3.74)
== END 2023-03-05 05:21 | disposition home or self-care (01) ==
LOC: LBO 05:20
PROVIDERS: PCP Family Medicine; Visit Provider Nurse Practitioner Women's Health
DX: R63.5 Abnormal weight gain (principal); R53.83 Other fatigue
CPT/HCPCS: 36415; 83036; 84443

== ENCOUNTER 2023-03-24 02:31 | Outpatient (CLI) | payer BC, SELFPAY ==
--- NOTE | 2023-03-24 12:15 | DI.MAMMO_ITS ---
Exam(s) MAMMO SCREENING EXAM: MAMMO SCREENING CLINICAL HISTORY: screening. TECHNIQUE: Bilateral full field digital CC and MLO mammographic images were obtained with 3D tomosyn thesis and utilizing computer aided detection (CAD). COMPARISON: Prior mammograms were reviewed. FINDINGS: There has been no significant change in the appearance and distribution of the fibroglandular tissue. There are no new spiculated masses nor malignant appearing microcalcification groups. There is no significant architectural distortion nor skin thickening-retraction. IMPRESSION: No radiographic evidence of malignancy. BI-RADS Category 1 - Negative Breast Density - Category B - Scattered areas of fibroglandular density Breast density Category C or D implies that the patient has dense breast tissue. Dense breast tissue can make it harder to find cancer on a mammogram. Dense breast tissue is also associated with an incr eased risk of breast cancer. This information about the result of the mammogram report was provided to the patient to raise their awareness. Use this report when you speak with the patient about their risks for breast cancer, which includes their family history. At that time, you may recommend additional screening tests (Ultrasoun d or MRI) as these tests may add significant information. A negative radiographic report should not delay biopsy if a dominant or clinically suspicious mass is present. Up to ten percent of cancers are not identified on mammography. A negative report may reinforce clinical impression. Adenosis and dense breasts may obscure an underlying neoplasm. False positive reports average 6 to 10%. Patient will receive a letter notifying them of these results.
== END 2023-03-24 02:51 ==
PROVIDERS: PCP Family Medicine; Visit Provider Nurse Practitioner Women's Health
DX: Z12.31 Encounter for screening mammogram for malignant neoplasm of breast (principal)
CPT/HCPCS: 77063; 77067

== ENCOUNTER 2023-10-27 05:40 | Outpatient (CLI) | payer BC, SELFPAY ==
[2023-10-27 12:44] LABS: Calculated LDL 127 mg/dL (<100); Cholesterol 210 mg/dL (<200); Glucose 73 mg/dL (74-106); HDL Cholesterol 66 mg/dL (40-60); Potassium 3.9 mmol/L (3.5-5.1); Triglyceride 89 mg/dL (<150)
== END 2023-10-27 05:41 | disposition home or self-care (01) ==
LOC: LOS 05:40
PROVIDERS: PCP Family Medicine; Visit Provider Family Medicine
DX: E78.5 Hyperlipidemia, unspecified (principal); R73.9 Hyperglycemia, unspecified; I10 Essential (primary) hypertension
CPT/HCPCS: 36415; 80061; 82947; 84132

== ENCOUNTER 2024-06-11 00:37 | Outpatient (CLI) | payer BC, SELFPAY ==
--- NOTE | 2024-06-11 12:15 | DI.MAMMO_ITS ---
Exam(s) MAMMO SCREENING EXAM: MAMMO SCREENING CLINICAL HISTORY: screening. TECHNIQUE: Bilateral full field digital CC and MLO mammographic images were obtained with 3D tomosyn thesis and utilizing computer aided detection (CAD). COMPARISON: Prior mammograms were reviewed. FINDINGS: No new left breast findings. In the right breast there is a new group microcalcifications located 6 cm back from the nipple on the CC view. Requires spot Mag view. There are no new spiculated masses. There is no significant architectural distortion nor skin thickening-retraction. IMPRESSION: 1. No radiographic evidence of malignancy in left breast. 2. New microcalcification in the right breast. Spot compression 2D Mag view recommended. BI-RADS Category 0 - Incomplete: Need additional imaging evaluation Breast Density - Category B - Scattered areas of fibroglandular density Breast density Category C or D implies that the patient has dense breast tissue. Dense breast tissue can make it harder to find cancer on a mammogram. Dense breast tissue is also associated with an incr eased risk of breast cancer. This information about the result of the mammogram report was provided to the patient to raise their awareness. Use this report when you speak with the patient about their risks for breast cancer, which includes their family history. At that time, you may recommend additional screening tests (Ultrasoun d or MRI) as these tests may add significant information. A negative radiographic report should not delay biopsy if a dominant or clinically suspicious mass is present. Up to ten percent of cancers are not identified on mammography. A negative report may reinforce clinical impression. Adenosis and dense breasts may obscure an underlying neoplasm. False positive reports average 6 to 10%. Patient will receive a letter notifying them of these results.
== END 2024-06-11 00:57 ==
LOC: DI 00:37
PROVIDERS: PCP Family Medicine; Visit Provider Nurse Practitioner Women's Health
DX: Z12.31 Encounter for screening mammogram for malignant neoplasm of breast (principal); R92.0 Mammographic microcalcification found on diagnostic imaging of breast
CPT/HCPCS: 77063; 77067

== ENCOUNTER 2024-06-18 00:16 | Outpatient (CLI) | payer BC, SELFPAY ==
--- NOTE | 2024-06-18 | DI.MAMMO_ITS ---
Exam(s) MAMMO SCREEN CALL BACK UNI EXAM: MAMMO SCREEN CALL BACK UNI CLINICAL HISTORY: New group of microcalcifications rt breast 6 cm from nipple. TECHNIQUE: Craniocaudal and mediolateral oblique Full Field Digital Mammography views of the right b reast with Computer Aided Diagnosis. COMPARISON: No exams were available for comparison FINDINGS: Mammography/Tomosynthesis: Masses/Architectural Distortion: None seen. Microcalcifictions: No suspicious pleomorphic-type are seen. There are few tiny microcalcifications s een in the right breast which appears stable compared to the prior examination. Skin Thickening/Nipple Retraction: None. IMPRESSION: 1. No evidence of malignancy is noted. 2. Unless there is more urgent need, follow-up screening mammography is recommended, as per [place] [employer] guidelines. 3. The findings were discussed with the patient on the date of the examination. BI-RADS Category 2 - Benign Findings Breast Density - Category B - Scattered areas of fibroglandular density Breast density Category C or D implies that the patient has dense breast tissue. Dense breast tissue can make it harder to find cancer on a mammogram. Dense breast tissue is also associated with an incr eased risk of breast cancer. This information about the result of the mammogram report was provided to the patient to raise their awareness. Use this report when you speak with the patient about their risks for breast cancer, which includes their family history. At that time, you may recommend additional screening tests (Ultrasoun d or MRI) as these tests may add significant information. A negative radiographic report should not delay biopsy if a dominant or clinically suspicious mass is present. Up to ten percent of cancers are not identified on mammography. A negative report may reinforce clinical impression. Adenosis and dense breasts may obscure an underlying neoplasm. False positive reports average 6 to 10%. Patient will receive a letter notifying them of these results.
== END 2024-06-18 00:36 ==
PROVIDERS: PCP Family Medicine; Visit Provider Nurse Practitioner Women's Health
DX: Z12.31 Encounter for screening mammogram for malignant neoplasm of breast (principal)
CPT/HCPCS: 77063; 77067

== ENCOUNTER 2025-06-23 08:52 | Outpatient (CLI) | payer BC, SELFPAY ==
[2025-06-23 16:31] LABS: Anion Gap 8.7 mmol/L (3-11); BUN 14 mg/dL (7-18); CO2 26.3 mmol/L (21.0-32.0); Calcium 9.6 mg/dL (8.5-10.1); Chloride 105 mmol/L (98-107); Estimated GFR 100.19 (mL/min/1.73m2); Glucose 104 mg/dL (74-106); Potassium 4.2 mmol/L (3.5-5.1); Sodium 140 mmol/L (136-145)
== END 2025-06-23 08:53 | disposition home or self-care (01) ==
PROVIDERS: PCP Family Medicine; Referring Provider Family Medicine; Visit Provider Family Medicine
DX: E87.1 Hypo-osmolality and hyponatremia (principal)
CPT/HCPCS: 36415; 80048

== ENCOUNTER 2025-06-27 00:38 | Outpatient (CLI) | payer BC, SELFPAY ==
--- NOTE | 2025-06-27 15:45 | DI.MAMMO_ITS ---
Exam(s) MAMMO SCREENING EXAM: MAMMO SCREENING CLINICAL HISTORY: screening TECHNIQUE: Bilateral full field digital CC and MLO mammographic images were obtained with 3D tomosynthesis and utilizing computer aided detection (CAD). COMPARISON: Comparison is made with prior examinations. FINDINGS: Masses/Architectural Distortion: No suspicious masses or areas of architectural distortion are present. Microcalcifications: No suspicious pleomorphic-type are seen. Skin Thickening/Nipple Retraction: None. IMPRESSION: 1. No significant interval change with no specific features of malignancy noted. 2. Unless there is more urgent need, screening mammography is recommended, as per [place] [employer] guidelines. BI-RADS Category 1 - Negative Breast Density - Category B - There are scattered areas of fibroglandular density. Breast density Category C or D implies that the patient has dense breast tissue. Dense breast tissue can make it harder to find cancer on a mammogram. Dense breast tissue is also associated with an increased risk of breast cancer. This information about the result of the mammogram report was provided to the patient to raise their awareness. Use this report when you speak with the patient about their risks for breast cancer, which includes their family history. At that time, you may recommend additional screening tests (Ultrasound or MRI) as these tests may add significant information. A negative radiographic report should not delay biopsy if a dominant or clinically suspicious mass is present. Up to ten percent of cancers are not identified on mammography. A negative report may reinforce clinical impression. Adenosis and dense breasts may obscure an underlying neoplasm. False positive reports average 6 to 10%. Patient will receive a letter notifying them of these results.
== END 2025-06-27 00:58 ==
LOC: DI 00:39
PROVIDERS: PCP Family Medicine; Visit Provider Nurse Practitioner Women's Health
DX: Z12.31 Encounter for screening mammogram for malignant neoplasm of breast (principal)
CPT/HCPCS: 77063; 77067